=== PATIENT | male | born 1975 | race Caucasian/White ===

== ENCOUNTER 2022-02-25 10:18 | Outpatient (CLI) | payer BC ==
[2022-02-25 11:25] LABS: Hemoglobin 16.2 g/dL (13.5-17.5); Mean Corpuscular HGB CONC 33.5 g/dL (32.0-36.0); Mean Corpuscular Hemoglobin 29.8 pg (27.0-33.0); Mean Platelet Volume 11.3 fl (7.4-10.4); Platelet Count 313 10x3/uL (150-450); RBC Distribution Width 13.7 % (11.5-14.5); Red Blood Cell (RBC) Count 5.43 10x6/uL (4.32-5.72); White Blood Cell (WBC) Count 9.5 10x3/uL (3.5-10.5)
[2022-02-25 11:46] LABS: INR-International Normal Ratio 0.9; PTT 25.2 sec (22.0-33.0); Prothrombin Time 10.1 sec (9.5-12.1)
[2022-02-25 11:51] LABS: Anion Gap 16 mmol/L (10-20); BUN (Urea Nitrogen) 23 mg/dL (8.9-20.6); Calc. Creatinine Clearance 0 mL/min (70-130); Calcium 9.4 mg/dL (7.8-10.44); Carbon Dioxide 22 mmol/L (22-29); Chloride 107 mmol/L (98-107); Estimated GFR 112; Glucose 113 mg/dL (70-105); Sodium 140 mmol/L (136-145)
== END 2022-02-25 10:19 | disposition home or self-care (01) ==
LOC: LABBT 10:18
PROVIDERS: ATTEND Surgery
DX: Z01.818 Encounter for other preprocedural examination (principal); M54.2 Cervicalgia; G95.9 Disease of spinal cord, unspecified; G96.00 Cerebrospinal fluid leak, unspecified
CPT/HCPCS: 80048; 85027; 85610; 85730; 93005; 93010

== ENCOUNTER 2022-02-25 10:30 | Inpatient (IN) | payer BC ==
[2022-02-28] MEDS ORDERED: fentaNYL PF 100 MCG/2 ML SYRINGE ONE (06:43)
[2022-02-28] MEDS ORDERED: Dexmedetomidine 200 MCG/2 ML VIAL ONE (06:43)
[2022-02-28] MEDS ORDERED: Neomycin-Polymyxin 1 ML AMP ONE (06:48)
[2022-02-28] MEDS ORDERED: Thrombin 5000 UNITS/5 ML VIAL ONE (06:48)
[2022-02-28] MEDS ORDERED: CEFAZOLIN 2 GM VIAL ONE (07:14)
[2022-02-28] MEDS ORDERED: Sodium Chloride 0.9% 100 ML ONE (07:14)
[2022-02-28] MEDS ORDERED: Midazolam HCl 2 mg/2 ml Vial ONE (07:15)
[2022-02-28] MEDS ORDERED: Propofol 1,000 MG/100 ML VIAL IV ONE (07:29)
[2022-02-28] MEDS ORDERED: Ondansetron PF 4 MG/2 ML Vial ONE (07:38)
[2022-02-28] MEDS ORDERED: Dexamethasone 20 MG/5 ML VIAL ONE (07:38)
[2022-02-28] MEDS ORDERED: ePHEDrine 50 MG/ML VIAL ONE (07:38)
[2022-02-28] MEDS ORDERED: PROPOFOL 200 MG/20 ML VIAL ONE (07:38)
[2022-02-28] MEDS ORDERED: PHENYLEPHRINE-NS 100 MCG/ML 10 ML SYRINGE ONE (07:38)
[2022-02-28] MEDS ORDERED: Glycopyrrolate 0.2 MG/ML 5 ML SYRINGE ONE (07:38)
[2022-02-28] MEDS ORDERED: NEOSTIGMINE 3 MG/3 ML SYR 3 MG/3 ML SYRINGE ONE (07:38)
[2022-02-28] MEDS ORDERED: Rocuronium Bromide 10 MG/ML (10ML VIAL) ONE (07:38)
[2022-02-28 07:46] LABS: SARS-CoV-2 NAA Rapid Test Not Detected (NotDetected)
[2022-02-28] MEDS ORDERED: Phenylephrine 10 MG/ML VIAL ONE (09:05)
[2022-02-28] MEDS ORDERED: Nitroglycerin 2% Ointment 1 INCH/1 GM Packet ONE (09:22)
[2022-02-28] MEDS ORDERED: Promethazine HCl 25 MG/ML VIAL IVPB PRN (11:19)
[2022-02-28] MEDS ORDERED: HYDROmorphone 2 MG/ML VIAL SLOW IVP PRN (11:19)
[2022-02-28] MEDS ORDERED: Meperidine HCl/PF 25 MG/ML VIAL SLOW IVP PRN (11:19)
[2022-02-28] MEDS ORDERED: PACU-Morphine 4MG/ML VIAL SLOW IVP PRN ×2 (11:19→11:47)
[2022-02-28] MEDS ORDERED: Ondansetron HCl/PF 4 MG/2 ML Vial IVP PRN (11:19)
[2022-02-28] MEDS ORDERED: Promethazine HCl 25 MG/ML VIAL IM PRN (11:19)
[2022-02-28] MEDS ORDERED: HYDROmorphone 2 MG/ML VIAL ONE (11:41)
[2022-02-28] MEDS ORDERED: FENTANYL 50 MCG/ML 1 ML VIAL SLOW IVP PRN (11:49)
[2022-02-28] MEDS ORDERED: HYDROcodone/Acetaminophen 7.5/325 mg Tablet PO PRN (11:56)
[2022-02-28] MEDS ORDERED: diphenhydrAMINE 25 MG CAP PO PRN (11:56)
[2022-02-28] MEDS ORDERED: Ondansetron PF 4 MG/2 ML Vial IVP PRN (11:56)
[2022-02-28] MEDS ORDERED: Acetaminophen/Codeine 30-300mg Tablet PO PRN (11:56)
[2022-02-28] MEDS ORDERED: hydrALAZINE 20 MG/ML VIAL SLOW IVP PRN (12:01)
[2022-02-28] MEDS ORDERED: Promethazine HCl 12.5 MG in Sodium Chloride 0.9% 50 ML IVPB PRN (12:01)
[2022-02-28] MEDS ORDERED: Lorazepam 1 MG TAB PO PRN (12:02)
[2022-02-28] MEDS ORDERED: HYDROmorphone 0.5 MG/0.5 ML SYRINGE ONE ×2 (13:20→13:45)
[2022-02-28] MEDS ORDERED: Ketorolac Tromethamine 30 MG/ML VIAL ONE (13:20)
[2022-02-28] MEDS: Sodium Chloride 0.9% 1,000 ML IV SCH (14:44)
[2022-02-28] MEDS: Ketorolac Tromethamine 30 MG/ML VIAL IVP PRN ×2 (14:53→22:20)
[2022-02-28] MEDS: FENTANYL 50 MCG/ML 1 ML VIAL SLOW IVP PRN ×4 (15:08→22:01)
[2022-02-28] MEDS: CEFAZOLIN 2 GM in Sodium Chloride 0.9% 100 ML IVPB SCH (15:13)
[2022-02-28 15:44] VITALS: BMI 38.8
[2022-02-28] MEDS: HYDROcodone/Acetaminophen 7.5/325 mg Tablet PO PRN ×2 (15:46→19:41)
[2022-02-28] MEDS: Diazepam 5 MG TAB PO PRN (16:57)
[2022-02-28 17:00] LABS: Troponin I Less than 0.010 ng/mL (< 0.028)
[2022-02-28] MEDS: traMADol HCl 50 MG TAB PO PRN (21:59)
[2022-02-28] MEDS: Atorvastatin Calcium 20 MG TAB PO SCH (22:00)
[2022-02-28] MEDS: metFORMIN 500 MG TAB PO SCH (22:00)
[2022-02-28 23:24] LABS: Troponin I Less than 0.010 ng/mL (< 0.028)
[2022-03-01] MEDS: CEFAZOLIN 2 GM in Sodium Chloride 0.9% 100 ML IVPB SCH ×2 (00:07→07:58)
[2022-03-01] MEDS: Diazepam 5 MG TAB PO PRN ×2 (02:49→10:42)
[2022-03-01] MEDS: Sodium Chloride 0.9% 1,000 ML IV SCH ×2 (02:53→17:35)
[2022-03-01 04:03] LABS: #Basophils 0.2 thou/uL (0.0-0.2); #Lymphocytes 2.6 thou/uL (1.20-3.40); #Monocytes 1.4 thou/uL (0.11-0.59); #Neutrophils 13.2 thou/uL (1.40-6.50); %Eosinophils 0.1 % (0.0-10.0); %Lymphocytes 15.1 % (21.0-51.0); %Monocytes 8.3 % (0.0-10.0); %Neutrophils 75.5 % (42.0-75.0); Hemoglobin 13.5 g/dL (14.0-18.0); Mean Corpuscular HGB CONC 31.9 g/dL (32.0-36.0); Mean Platelet Volume 8.5 fL (7.4-10.4); Platelet Count 248 10x3/uL (130-400); RBC Distribution Width 12.8 % (11.5-14.5); Red Blood Cell (RBC) Count 4.52 mill/uL (4.70-6.10); White Blood Cell (WBC) Count 17.4 10x3/uL (4.8-10.8)
[2022-03-01 04:23] LABS: Anion Gap 13 mmol/L (10-20); BUN (Urea Nitrogen) 21 mg/dL (8.9-20.6); Calc. Creatinine Clearance 234 mL/min (70-130); Calcium 8.2 mg/dL (7.8-10.44); Carbon Dioxide 22 mmol/L (22-29); Chloride 106 mmol/L (98-107); Estimated GFR 112; Glucose 130 mg/dL (70-105); Sodium 137 mmol/L (136-145)
[2022-03-01] MEDS: traMADol HCl 50 MG TAB PO PRN (05:48)
[2022-03-01] MEDS: Ketorolac Tromethamine 30 MG/ML VIAL IVP PRN ×2 (05:49→12:09)
[2022-03-01] MEDS: HYDROcodone/Acetaminophen 7.5/325 mg Tablet PO PRN (07:59)
[2022-03-01] MEDS: metFORMIN 500 MG TAB PO SCH ×2 (08:02→20:37)
[2022-03-01] MEDS: FENTANYL 50 MCG/ML 1 ML VIAL SLOW IVP PRN (09:09)
[2022-03-01] MEDS ORDERED: Bisacodyl 5 MG TAB PO SCH (10:30)
[2022-03-01] MEDS ORDERED: diphenhydrAMINE 50 MG/ML VIAL IM PRN (11:24)
[2022-03-01] MEDS ORDERED: diphenhydrAMINE 25 MG CAP PO PRN (11:24)
[2022-03-01] MEDS ORDERED: Zolpidem Tartrate 5 MG TAB PO PRN (11:24)
[2022-03-01] MEDS ORDERED: Naloxone HCl 0.4 mg/ml Vial IV PRN (11:24)
[2022-03-01] MEDS ORDERED: diphenhydrAMINE 50 MG/ML VIAL IVP PRN (11:24)
[2022-03-01] MEDS ORDERED: Promethazine HCl 25 MG/ML VIAL IM PRN (11:24)
[2022-03-01] MEDS ORDERED: Communication Order-Pharmacy FS SCH (11:30)
[2022-03-01] MEDS: HYDROmorphone 10 mg/100 ml CADD IVPB PRN (12:38)
[2022-03-01] MEDS: Docusate 100 MG CAP PO SCH (20:37)
[2022-03-01] MEDS: Atorvastatin Calcium 20 MG TAB PO SCH (20:37)
[2022-03-02] MEDS: Acetaminophen 325 MG TAB PO PRN ×2 (00:19→20:54)
[2022-03-02] MEDS: Sodium Chloride 0.9% 1,000 ML IV SCH ×2 (08:09→19:41)
[2022-03-02] MEDS: HYDROmorphone 10 mg/100 ml CADD IVPB PRN (08:09)
[2022-03-02] MEDS: Docusate 100 MG CAP PO SCH ×2 (08:09→20:54)
[2022-03-02] MEDS: Bisacodyl 5 MG TAB PO SCH (08:09)
[2022-03-02] MEDS: metFORMIN 500 MG TAB PO SCH ×2 (08:09→20:54)
[2022-03-02] MEDS: Atorvastatin Calcium 20 MG TAB PO SCH (20:54)
[2022-03-03] MEDS: Ondansetron PF 4 MG/2 ML Vial IVP PRN ×2 (04:57→10:20)
[2022-03-03] MEDS: Sodium Chloride 0.9% 1,000 ML IV SCH ×2 (06:58→21:45)
[2022-03-03] MEDS: Docusate 100 MG CAP PO SCH ×2 (09:14→21:43)
[2022-03-03] MEDS: metFORMIN 500 MG TAB PO SCH ×2 (09:14→21:43)
[2022-03-03] MEDS: Bisacodyl 5 MG TAB PO SCH (09:14)
[2022-03-03] MEDS ORDERED: Acetaminophen/Codeine 30-300mg Tablet PO PRN (14:45)
[2022-03-03] MEDS ORDERED: traMADol HCl 50 MG TAB PO PRN (14:45)
[2022-03-03] MEDS ORDERED: HYDROcodone/Acetaminophen 7.5/325 mg Tablet PO PRN (14:46)
[2022-03-03] MEDS ORDERED: FLU VACC QS2022-23(6MOS UP)/PF 60 MCG/0.5 ML SYRINGE IM ONE (18:00)
[2022-03-03] MEDS ORDERED: Polyethylene Glycol 3350 17 GM Packet PO PRN (20:51)
[2022-03-03] MEDS: Atorvastatin Calcium 20 MG TAB PO SCH (21:43)
[2022-03-04] MEDS: HYDROcodone/Acetaminophen 7.5/325 mg Tablet PO PRN ×4 (04:11→20:35)
[2022-03-04 07:17] LABS: Anion Gap 12 mmol/L (10-20); BUN (Urea Nitrogen) 16 mg/dL (8.9-20.6); Calc. Creatinine Clearance 247 mL/min (70-130); Calcium 8.3 mg/dL (7.8-10.44); Carbon Dioxide 24 mmol/L (22-29); Chloride 104 mmol/L (98-107); Estimated GFR 114; Glucose 155 mg/dL (70-105); Potassium 3.8 mmol/L (3.5-5.1); Sodium 136 mmol/L (136-145)
[2022-03-04 07:25] LABS: #Basophils 0.3 thou/uL (0.0-0.2); #Eosinphils 0.3 thou/uL (0.0-0.7); #Lymphocytes 2.3 thou/uL (1.20-3.40); #Monocytes 1.1 thou/uL (0.11-0.59); #Neutrophils 7.6 thou/uL (1.40-6.50); %Basophils 2.2 % (0.0-1.0); %Eosinophils 2.6 % (0.0-10.0); %Lymphocytes 19.7 % (21.0-51.0); %Monocytes 9.8 % (0.0-10.0); %Neutrophils 65.7 % (42.0-75.0); Hemoglobin 13.4 g/dL (14.0-18.0); Mean Corpuscular HGB CONC 31.7 g/dL (32.0-36.0); Mean Corpuscular Hemoglobin 29.7 pg (27.0-31.0); Mean Corpuscular Volume 93.7 fl (78.0-98.0); Mean Platelet Volume 8.5 fL (7.4-10.4); Platelet Count 266 10x3/uL (130-400); RBC Distribution Width 12.7 % (11.5-14.5); Red Blood Cell (RBC) Count 4.51 mill/uL (4.70-6.10); White Blood Cell (WBC) Count 11.6 10x3/uL (4.8-10.8)
[2022-03-04] MEDS: Docusate 100 MG CAP PO SCH ×2 (08:22→20:35)
[2022-03-04] MEDS: metFORMIN 500 MG TAB PO SCH ×2 (08:22→20:35)
[2022-03-04] MEDS: Bisacodyl 5 MG TAB PO SCH (08:22)
[2022-03-04] MEDS: Sodium Chloride 0.9% 1,000 ML IV SCH ×2 (08:29→20:33)
[2022-03-04] MEDS: Atorvastatin Calcium 20 MG TAB PO SCH (20:35)
[2022-03-05] MEDS: HYDROcodone/Acetaminophen 7.5/325 mg Tablet PO PRN ×4 (01:01→22:30)
[2022-03-05] MEDS: metFORMIN 500 MG TAB PO SCH ×2 (08:35→19:45)
[2022-03-05] MEDS ORDERED: Enoxaparin Sodium 40 MG/0.4 ML SYRINGE SC SCH (15:00)
[2022-03-05] MEDS: Docusate 100 MG CAP PO SCH ×2 (15:45→19:45)
[2022-03-05] MEDS: Bisacodyl 5 MG TAB PO SCH (15:45)
[2022-03-05] MEDS: Sodium Chloride 0.9% 1,000 ML IV SCH (15:46)
[2022-03-05] MEDS: Atorvastatin Calcium 20 MG TAB PO SCH (19:45)
[2022-03-06] MEDS: Sodium Chloride 0.9% 1,000 ML IV SCH (02:32)
[2022-03-06] MEDS: HYDROcodone/Acetaminophen 7.5/325 mg Tablet PO PRN (07:04)
[2022-03-06] MEDS ORDERED: Ketorolac Tromethamine 30 MG/ML VIAL IVP PRN (08:05)
[2022-03-06] MEDS ORDERED: Ketorolac Tromethamine 30 MG/ML VIAL IVP SCH (08:15)
[2022-03-06] MEDS ORDERED: Enoxaparin Sodium 40 MG/0.4 ML SYRINGE SC SCH (09:00)
[2022-03-06] MEDS: Docusate 100 MG CAP PO SCH (09:15)
[2022-03-06] MEDS: metFORMIN 500 MG TAB PO SCH (09:16)
[2022-03-06] MEDS: Bisacodyl 5 MG TAB PO SCH (09:16)
[2022-03-06] MEDS ORDERED: Fioricet 325/50/40 mg Tablet PO PRN (10:45)
[2022-03-06 12:44] VITALS: BP 120/78; TEMP 97.8
== END 2022-03-06 13:20 | DRG 29 ==
LOC: SURG A 02-28 06:09 → CCU 02-28 14:48 → SURG A 03-01 18:18
PROVIDERS: ADMIT Surgery; ATTEND Surgery
PROC: 00UT0JZ Supplement Spinal Meninges with Synthetic Substitute, Open Approach (ICD-10-PCS; principal; 2022-02-28)
PROC: 01NB0ZZ Release Lumbar Nerve, Open Approach (ICD-10-PCS; 2022-02-28)
DX: G96.198 Other disorders of meninges, not elsewhere classified (principal); G83.4 Cauda equina syndrome; G96.00 Cerebrospinal fluid leak, unspecified; G93.89 Other specified disorders of brain; E78.5 Hyperlipidemia, unspecified; J45.909 Unspecified asthma, uncomplicated; G47.33 Obstructive sleep apnea (adult) (pediatric); F32.A Depression, unspecified; F41.9 Anxiety disorder, unspecified; E11.9 Type 2 diabetes mellitus without complications; E66.9 Obesity, unspecified; Z90.49 Acquired absence of other specified parts of digestive tract; Z68.38 Body mass index [BMI] 38.0-38.9, adult; Z88.1 Allergy status to other antibiotic agents; G31.89 Other specified degenerative diseases of nervous system
CPT/HCPCS: 36415; 70450; 80048; 84484; 85025; 88305; 93005; 93010; 93970; C1776; J1100; J1170; J1650; J1885; J2250; J2370; J2405; J2704; J3010; J3370; J3490; J7050; U0002

== ENCOUNTER 2022-03-17 21:38 | Inpatient (IN) | payer BC ==
[2022-03-17] MEDS ORDERED: Ondansetron PF 4 MG/2 ML Vial ONE (22:10)
[2022-03-17] MEDS ORDERED: FENTANYL 50 MCG/ML 1 ML VIAL ONE (22:13)
[2022-03-17] MEDS ORDERED: Cefepime 2 GM VIAL ONE (22:33)
[2022-03-17] MEDS ORDERED: Clindamycin/D5W 600 mg/50 ml Premix Bag ONE (22:56)
[2022-03-17 23:00] LABS: Band 9 % (5-11); Lymphocytes 9 % (21-51); MDiff Complete? YES; Mean Corpuscular HGB CONC 31.9 g/dL (32.0-36.0); Mean Platelet Volume 8.5 fL (7.4-10.4); Monocytes 2 % (0-10); Neutrophil 80 % (42-75); Platelet Count 437 10x3/uL (130-400); RBC Distribution Width 12.8 % (11.5-14.5); Red Blood Cell (RBC) Count 5.01 mill/uL (4.70-6.10); White Blood Cell (WBC) Count 30.3 10x3/uL (4.8-10.8)
[2022-03-17 23:07] LABS: SARS-CoV-2 NAA Rapid Test Not Detected (NotDetected)
[2022-03-17 23:34] LABS: ALT (SGPT) 18 U/L (8-55); AST (SGOT) 10 U/L (5-34); Albumin 3.2 g/dL (3.5-5.0); Alkaline Phosphatase 66 U/L (40-110); Anion Gap 12 mmol/L (10-20); BUN (Urea Nitrogen) 23 mg/dL (8.9-20.6); Bilirubin, Total 0.5 mg/dL (0.2-1.2); Calc. Creatinine Clearance 0 mL/min (70-130); Calcium 8.2 mg/dL (7.8-10.44); Carbon Dioxide 23 mmol/L (22-29); Chloride 104 mmol/L (98-107); Estimated GFR 100; Globulin 2.7 g/dL (2.4-3.5); Glucose 224 mg/dL (70-105); Potassium 3.7 mmol/L (3.5-5.1); Protein, Total 5.9 g/dL (6.0-8.3); Sodium 135 mmol/L (136-145)
[2022-03-18] MEDS ORDERED: Morphine 4 MG/ML VIAL ONE ×2 (00:06→02:19)
[2022-03-18] MEDS ORDERED: diphenhydrAMINE 50 MG CAP ONE (00:14)
[2022-03-18] MEDS ORDERED: Acetaminophen 500 MG TAB ONE (00:17)
[2022-03-18 01:38] LABS: Lactic Acid 5.1 mmol/L (0.5-2.2)
[2022-03-18] MEDS ORDERED: Piperacillin/Tazobactam 4.5 GM VIAL ONE (02:19)
[2022-03-18] MEDS ORDERED: HumaLOG 300 UNITS/3 ML VIAL SC PRN (02:48)
[2022-03-18] MEDS ORDERED: Ondansetron PF 4 MG/2 ML Vial IVP PRN (02:48)
[2022-03-18] MEDS ORDERED: Dextrose 50% Abboject 50 ML SYRINGE SLOW IVP PRN (02:48)
[2022-03-18] MEDS ORDERED: Dextrose 5% in Water 1,000 ML IV PRN (02:48)
[2022-03-18] MEDS ORDERED: Ondansetron ODT 4 MG TAB PO PRN (02:48)
[2022-03-18] MEDS ORDERED: Acetaminophen 650 MG Suppository PR PRN (02:48)
[2022-03-18] MEDS: Linezolid 600 MG in Premix Bag 1 BAG IVPB SCH ×2 (05:00→18:37)
[2022-03-18] MEDS ORDERED: FENTANYL 50 MCG/ML 1 ML VIAL SLOW IVP PRN (05:15)
[2022-03-18] MEDS ORDERED: FENTANYL 50 MCG/ML 1 ML VIAL ONE ×6 (05:34→16:24)
[2022-03-18] MEDS ORDERED: Acetaminophen 325 MG TAB ONE (05:34)
[2022-03-18] MEDS: Acetaminophen 325 MG TAB PO PRN (05:40)
[2022-03-18 06:17] LABS: Bilirubin Negative (Negative); Blood, Urine Negative (Negative); Clarity Clear (Clear); Glucose, Urine (Dipstick) 70 mg/dL (Negative); Ketone, Urine Trace mg/dL (Negative); Leukocyte Negative Leu/uL (Negative); Nitrite Negative (Negative); Protein, Urine (Dipstick) 30 mg/dL (Neg-Trace); Specific Gravity, Urine 1.029 (1.002-1.036); Urobilinogen Normal mg/dL (Less than 2); pH, Urine 5.5 (5.0-9.0)
[2022-03-18 06:28] LABS: Lactic Acid 2.2 mmol/L (0.5-2.2)
[2022-03-18 06:34] LABS: Anion Gap 12 mmol/L (10-20); BUN (Urea Nitrogen) 19 mg/dL (8.9-20.6); Calc. Creatinine Clearance 0 mL/min (70-130); Calcium 8.1 mg/dL (7.8-10.44); Carbon Dioxide 21 mmol/L (22-29); Chloride 105 mmol/L (98-107); Estimated GFR 100; Glucose 211 mg/dL (70-105); Sodium 134 mmol/L (136-145)
[2022-03-18 06:37] LABS: Hemoglobin 13.9 g/dL (14.0-18.0); Mean Corpuscular HGB CONC 33.5 g/dL (32.0-36.0); Mean Corpuscular Hemoglobin 32.1 pg (27.0-31.0); Mean Corpuscular Volume 95.6 fl (78.0-98.0); Mean Platelet Volume 7.9 fL (7.4-10.4); Platelet Count 470 10x3/uL (130-400); RBC Distribution Width 12.9 % (11.5-14.5); Red Blood Cell (RBC) Count 4.33 mill/uL (4.70-6.10); White Blood Cell (WBC) Count 28.6 10x3/uL (4.8-10.8)
[2022-03-18 06:47] LABS: Band 8 % (5-11); Lymphocytes 5 % (21-51); MDiff Complete? YES; Monocytes 4 % (0-10); Neutrophil 83 % (42-75)
[2022-03-18 07:05] LABS: Bacteria/HPF None Seen HPF (None Seen); RBC/HPF 0-3 HPF (0-3); Squamous Epithelial 0-3 HPF (0-3); WBC/HPF 0-3 HPF (0-3)
[2022-03-18] MEDS ORDERED: Fentanyl 100 MCG/2 ML VIAL SLOW IVP SCH (07:15)
[2022-03-18] MEDS ORDERED: FENTANYL 50 MCG/ML 1 ML VIAL SLOW IVP SCH (07:45)
[2022-03-18 09:02] LABS: Lactic Acid 3.7 mmol/L (0.5-2.2)
[2022-03-18] MEDS ORDERED: Piperacillin/Tazobactam 3.375 GM VIAL ONE (09:06)
[2022-03-18] MEDS: Piperacillin/Tazobactam 3.375 GM in Sodium Chloride 0.9% 100 ML IVPB SCH ×3 (09:16→20:32)
[2022-03-18] MEDS ORDERED: Fentanyl 100 MCG/2 ML VIAL SLOW IVP PRN (10:14)
[2022-03-18] MEDS ORDERED: Sodium Chloride 0.9% 500 ML IV SCH (10:15)
[2022-03-18] MEDS ORDERED: Magnevist 469MG/ML 20 ML VIAL ONE (10:31)
[2022-03-18] MEDS: Sodium Chloride 0.9% 1,000 ML IV SCH ×2 (11:11→18:37)
[2022-03-18] MEDS ORDERED: Midazolam HCl 2 mg/2 ml Vial ONE ×2 (11:50→14:12)
[2022-03-18] MEDS ORDERED: Ondansetron PF 4 MG/2 ML Vial ONE ×2 (13:53→14:27)
[2022-03-18] MEDS ORDERED: fentaNYL PF 100 MCG/2 ML SYRINGE ONE (14:12)
[2022-03-18] MEDS ORDERED: HYDROmorphone 2 MG/ML VIAL ONE (14:13)
[2022-03-18] MEDS ORDERED: Neomycin-Polymyxin 1 ML AMP ONE (14:25)
[2022-03-18] MEDS ORDERED: Dexamethasone 20 MG/5 ML VIAL ONE (14:27)
[2022-03-18] MEDS ORDERED: Ketorolac Tromethamine 30 MG/ML VIAL ONE (14:27)
[2022-03-18] MEDS ORDERED: Succinylcholine 200 MG/10 ml SYRINGE FS ONE (14:27)
[2022-03-18] MEDS ORDERED: Heparin 1,000 UNITS/ML VIAL ONE (14:34)
[2022-03-18] MEDS ORDERED: Ondansetron HCl/PF 4 MG/2 ML Vial IVP PRN (15:21)
[2022-03-18] MEDS ORDERED: Promethazine HCl 25 MG/ML VIAL IM PRN (15:21)
[2022-03-18] MEDS ORDERED: Meperidine HCl/PF 25 MG/ML VIAL SLOW IVP PRN (15:21)
[2022-03-18] MEDS ORDERED: Promethazine HCl 25 MG/ML VIAL IVPB PRN (15:21)
[2022-03-18] MEDS ORDERED: HYDROmorphone 2 MG/ML VIAL SLOW IVP PRN (15:21)
[2022-03-18] MEDS: tiZANidine HCl 4 MG TAB PO SCH ×2 (18:34→18:37)
[2022-03-18] MEDS: HYDROcodone/Acetaminophen 10/325 mg Tablet PO PRN ×2 (18:35→22:51)
[2022-03-18] MEDS: HumaLOG 300 UNITS/3 ML VIAL SC PRN (18:41)
[2022-03-19] MEDS: Sodium Chloride 0.9% 1,000 ML IV SCH ×4 (00:22→20:30)
[2022-03-19 01:06] LABS: Bacteria/HPF None Seen HPF (None Seen); Bilirubin Negative (Negative); Blood, Urine 1+ (Negative); CAUTI Indications for Culture Fever or rigors; Clarity Turbid (Clear); Glucose, Urine (Dipstick) 300 mg/dL (Negative); Ketone, Urine Trace mg/dL (Negative); Leukocyte Negative Leu/uL (Negative); Nitrite Negative (Negative); Protein, Urine (Dipstick) 70 mg/dL (Neg-Trace); RBC/HPF 0-3 HPF (0-3); Specific Gravity, Urine 1.038 (1.002-1.036); Squamous Epithelial 0-3 HPF (0-3); Urobilinogen Normal mg/dL (Less than 2)
[2022-03-19 01:11] LABS: Urine Culture Reflex No No
[2022-03-19] MEDS: HYDROcodone/Acetaminophen 10/325 mg Tablet PO PRN ×3 (03:15→20:28)
[2022-03-19] MEDS: Morphine 4 MG/ML VIAL SLOW IVP PRN (05:20)
[2022-03-19] MEDS: Linezolid 600 MG in Premix Bag 1 BAG IVPB SCH ×2 (05:20→17:49)
[2022-03-19] MEDS: tiZANidine HCl 4 MG TAB PO SCH ×4 (05:20→23:21)
[2022-03-19] MEDS: HumaLOG 300 UNITS/3 ML VIAL SC PRN ×3 (05:31→16:51)
[2022-03-19 05:40] LABS: Anion Gap 13 mmol/L (10-20); BUN (Urea Nitrogen) 19 mg/dL (8.9-20.6); Calc. Creatinine Clearance 215 mL/min (70-130); Calcium 8.1 mg/dL (7.8-10.44); Carbon Dioxide 21 mmol/L (22-29); Chloride 106 mmol/L (98-107); Estimated GFR 112; Glucose 154 mg/dL (70-105); Potassium 3.7 mmol/L (3.5-5.1); Sodium 136 mmol/L (136-145)
[2022-03-19 06:01] LABS: Band 11 % (5-11); Hemoglobin 11.8 g/dL (14.0-18.0); Lymphocytes 3 % (21-51); MDiff Complete? YES; Mean Corpuscular HGB CONC 31.2 g/dL (32.0-36.0); Mean Corpuscular Hemoglobin 29.9 pg (27.0-31.0); Mean Corpuscular Volume 95.7 fl (78.0-98.0); Mean Platelet Volume 8.4 fL (7.4-10.4); Monocytes 5 % (0-10); Neutrophil 81 % (42-75); Platelet Count 401 10x3/uL (130-400); RBC Distribution Width 12.7 % (11.5-14.5); Red Blood Cell (RBC) Count 3.96 mill/uL (4.70-6.10); White Blood Cell (WBC) Count 23.2 10x3/uL (4.8-10.8)
[2022-03-19] MEDS: Piperacillin/Tazobactam 3.375 GM in Sodium Chloride 0.9% 100 ML IVPB SCH ×3 (06:17→23:21)
[2022-03-19] MEDS: Acetaminophen 325 MG TAB PO PRN (06:17)
[2022-03-19] MEDS ORDERED: Polyethylene Glycol 3350 17 GM Packet PO PRN (09:20)
[2022-03-19] MEDS ORDERED: Docusate 100 MG CAP PO SCH (10:30)
[2022-03-19] MEDS: metFORMIN 500 MG TAB PO SCH (16:49)
[2022-03-19] MEDS: Docusate 100 MG CAP PO SCH (20:27)
[2022-03-19] MEDS: Fioricet 325/50/40 mg Tablet PO PRN (23:44)
[2022-03-20] MEDS: HYDROcodone/Acetaminophen 10/325 mg Tablet PO PRN ×4 (03:36→23:13)
[2022-03-20] MEDS: Sodium Chloride 0.9% 1,000 ML IV SCH ×3 (03:38→12:42)
[2022-03-20] MEDS: Linezolid 600 MG in Premix Bag 1 BAG IVPB SCH ×2 (04:27→17:23)
[2022-03-20 05:08] LABS: #Basophils 0.3 thou/uL (0.0-0.2); #Eosinphils 0.2 thou/uL (0.0-0.7); #Lymphocytes 2.5 thou/uL (1.20-3.40); #Neutrophils 11.2 thou/uL (1.40-6.50); %Basophils 2.2 % (0.0-1.0); %Eosinophils 1.4 % (0.0-10.0); %Lymphocytes 16.7 % (21.0-51.0); %Monocytes 6.3 % (0.0-10.0); %Neutrophils 73.4 % (42.0-75.0); Hemoglobin 10.9 g/dL (14.0-18.0); Mean Corpuscular HGB CONC 31.9 g/dL (32.0-36.0); Mean Corpuscular Hemoglobin 30.4 pg (27.0-31.0); Mean Corpuscular Volume 95.1 fl (78.0-98.0); Mean Platelet Volume 8.5 fL (7.4-10.4); Platelet Count 373 10x3/uL (130-400); RBC Distribution Width 12.9 % (11.5-14.5); Red Blood Cell (RBC) Count 3.59 mill/uL (4.70-6.10); White Blood Cell (WBC) Count 15.2 10x3/uL (4.8-10.8)
[2022-03-20 05:18] LABS: Anion Gap 12 mmol/L (10-20); BUN (Urea Nitrogen) 14 mg/dL (8.9-20.6); Calc. Creatinine Clearance 224 mL/min (70-130); Calcium 7.9 mg/dL (7.8-10.44); Carbon Dioxide 21 mmol/L (22-29); Chloride 107 mmol/L (98-107); Estimated GFR 113; Glucose 113 mg/dL (70-105); Potassium 3.8 mmol/L (3.5-5.1); Sodium 136 mmol/L (136-145)
[2022-03-20] MEDS: Piperacillin/Tazobactam 3.375 GM in Sodium Chloride 0.9% 100 ML IVPB SCH ×3 (06:19→21:00)
[2022-03-20] MEDS: tiZANidine HCl 4 MG TAB PO SCH ×4 (06:19→23:13)
[2022-03-20] MEDS: Fioricet 325/50/40 mg Tablet PO PRN ×3 (06:20→20:54)
[2022-03-20] MEDS: Atorvastatin Calcium 20 MG TAB PO SCH (08:32)
[2022-03-20] MEDS: metFORMIN 500 MG TAB PO SCH ×2 (08:33→17:22)
[2022-03-20] MEDS: Docusate 100 MG CAP PO SCH (08:34)
[2022-03-20] MEDS ORDERED: Senokot 8.6 MG TAB PO PRN (12:17)
[2022-03-20] MEDS: Morphine 4 MG/ML VIAL SLOW IVP PRN ×2 (16:05→20:57)
[2022-03-20] MEDS: Acetaminophen 325 MG TAB PO PRN (16:05)
[2022-03-20] MEDS: Saccharomyces boulardii 250 MG CAP PO SCH (20:54)
[2022-03-21] MEDS: Morphine 4 MG/ML VIAL SLOW IVP PRN ×2 (00:01→05:53)
[2022-03-21] MEDS: Sodium Chloride 0.9% 1,000 ML IV SCH ×3 (02:03→16:40)
[2022-03-21] MEDS: Linezolid 600 MG in Premix Bag 1 BAG IVPB SCH ×2 (03:29→05:58)
[2022-03-21] MEDS: tiZANidine HCl 4 MG TAB PO SCH ×3 (05:54→18:39)
[2022-03-21 05:58] LABS: #Basophils 0.1 thou/uL (0.0-0.2); #Eosinphils 0.3 thou/uL (0.0-0.7); #Lymphocytes 2.1 thou/uL (1.20-3.40); #Monocytes 1.2 thou/uL (0.11-0.59); #Neutrophils 9.8 thou/uL (1.40-6.50); %Basophils 0.5 % (0.0-1.0); %Eosinophils 2.3 % (0.0-10.0); %Lymphocytes 15.5 % (21.0-51.0); %Monocytes 8.8 % (0.0-10.0); %Neutrophils 72.9 % (42.0-75.0); Hemoglobin 11.5 g/dL (14.0-18.0); Mean Corpuscular HGB CONC 32.4 g/dL (32.0-36.0); Mean Corpuscular Hemoglobin 30.6 pg (27.0-31.0); Mean Corpuscular Volume 94.5 fl (78.0-98.0); Mean Platelet Volume 8.3 fL (7.4-10.4); Platelet Count 379 10x3/uL (130-400); Red Blood Cell (RBC) Count 3.75 mill/uL (4.70-6.10); White Blood Cell (WBC) Count 13.5 10x3/uL (4.8-10.8)
[2022-03-21 06:16] LABS: ALT (SGPT) 18 U/L (8-55); AST (SGOT) 18 U/L (5-34); Albumin 2.8 g/dL (3.5-5.0); Alkaline Phosphatase 67 U/L (40-110); Anion Gap 12 mmol/L (10-20); BUN (Urea Nitrogen) 8 mg/dL (8.9-20.6); Bilirubin, Total 0.7 mg/dL (0.2-1.2); Calc. Creatinine Clearance 218 mL/min (70-130); Calcium 8.2 mg/dL (7.8-10.44); Carbon Dioxide 25 mmol/L (22-29); Chloride 100 mmol/L (98-107); Estimated GFR 112; Globulin 2.8 g/dL (2.4-3.5); Glucose 126 mg/dL (70-105); Magnesium 1.8 mg/dL (1.6-2.6); Potassium 3.9 mmol/L (3.5-5.1); Protein, Total 5.6 g/dL (6.0-8.3); Sodium 133 mmol/L (136-145)
[2022-03-21] MEDS ORDERED: Morphine 4 MG/ML VIAL SLOW IVP SCH (06:30)
[2022-03-21] MEDS ORDERED: Morphine 2 MG/ML VIAL SLOW IVP PRN (07:54)
[2022-03-21] MEDS ORDERED: Morphine 4 MG/ML VIAL ONE (07:59)
[2022-03-21] MEDS ORDERED: Dexamethasone 4 mg/ml Vial SLOW IVP SCH (08:00)
[2022-03-21] MEDS ORDERED: Dexamethasone 4 mg/ml Vial ONE (08:02)
[2022-03-21] MEDS: Piperacillin/Tazobactam 3.375 GM in Sodium Chloride 0.9% 100 ML IVPB SCH (08:15)
[2022-03-21] MEDS: metFORMIN 500 MG TAB PO SCH ×2 (08:24→18:13)
[2022-03-21] MEDS: Atorvastatin Calcium 20 MG TAB PO SCH (08:25)
[2022-03-21] MEDS ORDERED: Morphine 4 MG/ML VIAL SLOW IVP PRN (09:37)
[2022-03-21] MEDS ORDERED: Thrombin 5000 UNITS/5 ML VIAL ONE (10:14)
[2022-03-21] MEDS ORDERED: fentaNYL PF 100 MCG/2 ML SYRINGE ONE (10:22)
[2022-03-21] MEDS ORDERED: Enoxaparin Sodium 40 MG/0.4 ML SYRINGE SC SCH (10:30)
[2022-03-21] MEDS ORDERED: PROPOFOL 200 MG/20 ML VIAL ONE (10:42)
[2022-03-21] MEDS ORDERED: Vecuronium 10 MG VIAL ONE (10:42)
[2022-03-21] MEDS ORDERED: Ondansetron PF 4 MG/2 ML Vial ONE (10:42)
[2022-03-21] MEDS ORDERED: Rocuronium Bromide 10 MG/ML (10ML VIAL) ONE (10:42)
[2022-03-21] MEDS ORDERED: Phenylephrine 10 MG/ML VIAL ONE (10:42)
[2022-03-21] MEDS ORDERED: Vancomycin 1 GM VIAL ONE (11:32)
[2022-03-21] MEDS ORDERED: SUGAMMADEX SODIUM 200 MG/2 ML VIAL ONE (12:15)
[2022-03-21] MEDS ORDERED: CCU Insulin Drip FS ONE ×2 (13:16→16:47)
[2022-03-21] MEDS ORDERED: Promethazine HCl 25 MG/ML VIAL IVPB PRN (13:24)
[2022-03-21] MEDS ORDERED: Promethazine HCl 25 MG/ML VIAL IM PRN ×2 (13:24→13:26)
[2022-03-21] MEDS ORDERED: Ondansetron HCl/PF 4 MG/2 ML Vial IVP PRN (13:24)
[2022-03-21] MEDS ORDERED: Naloxone HCl 0.4 mg/ml Vial IV PRN (13:26)
[2022-03-21] MEDS ORDERED: diphenhydrAMINE 25 MG CAP PO PRN (13:26)
[2022-03-21] MEDS ORDERED: diphenhydrAMINE 50 MG/ML VIAL IM PRN (13:26)
[2022-03-21] MEDS ORDERED: Ondansetron PF 4 MG/2 ML Vial IVP PRN (13:26)
[2022-03-21] MEDS ORDERED: HYDROmorphone 10 mg/100 ml CADD IVPB PRN (13:26)
[2022-03-21] MEDS ORDERED: Communication Order-Pharmacy FS SCH (13:30)
[2022-03-21] MEDS ORDERED: FENTANYL 50 MCG/ML 1 ML VIAL ONE ×3 (13:35→14:03)
[2022-03-21] MEDS ORDERED: HUMULIN R 100 UNITS in Sodium Chloride 0.9% 100 ML IVPB SCH ×2 (13:45→18:45)
[2022-03-21] MEDS: Oxacillin 2 GM in Sodium Chloride 0.9% 100 ML IVPB SCH ×3 (14:55→20:15)
[2022-03-21] MEDS ORDERED: Melatonin 3 MG TAB PO SCH (19:45)
[2022-03-21] MEDS: Saccharomyces boulardii 250 MG CAP PO SCH (20:15)
[2022-03-21] MEDS: HumaLOG 300 UNITS/3 ML VIAL SC PRN ×2 (20:16→21:44)
[2022-03-22] MEDS: diphenhydrAMINE 50 MG/ML VIAL IVP PRN (00:13)
[2022-03-22] MEDS: tiZANidine HCl 4 MG TAB PO SCH ×4 (00:13→17:47)
[2022-03-22] MEDS: Dexamethasone 4 MG TAB PO SCH ×2 (00:13→05:20)
[2022-03-22] MEDS: Oxacillin 2 GM in Sodium Chloride 0.9% 100 ML IVPB SCH ×6 (00:13→21:42)
[2022-03-22] MEDS: Sodium Chloride 0.9% 1,000 ML IV SCH ×3 (03:35→17:59)
[2022-03-22 04:39] LABS: Mean Corpuscular HGB CONC 32.5 g/dL (32.0-36.0); Mean Corpuscular Hemoglobin 30.4 pg (27.0-31.0); Mean Corpuscular Volume 93.5 fl (78.0-98.0); Mean Platelet Volume 8.2 fL (7.4-10.4); Platelet Count 315 10x3/uL (130-400); RBC Distribution Width 12.8 % (11.5-14.5); Red Blood Cell (RBC) Count 3.29 mill/uL (4.70-6.10); White Blood Cell (WBC) Count 15.8 10x3/uL (4.8-10.8)
[2022-03-22 04:48] LABS: ALT (SGPT) 17 U/L (8-55); AST (SGOT) 17 U/L (5-34); Albumin 2.4 g/dL (3.5-5.0); Alkaline Phosphatase 60 U/L (40-110); Anion Gap 11 mmol/L (10-20); BUN (Urea Nitrogen) 10 mg/dL (8.9-20.6); Bilirubin, Total 0.5 mg/dL (0.2-1.2); Calc. Creatinine Clearance 238 mL/min (70-130); Carbon Dioxide 24 mmol/L (22-29); Chloride 102 mmol/L (98-107); Estimated GFR 115; Globulin 2.8 g/dL (2.4-3.5); Glucose 153 mg/dL (70-105); Potassium 4.2 mmol/L (3.5-5.1); Protein, Total 5.2 g/dL (6.0-8.3); Sodium 133 mmol/L (136-145)
[2022-03-22 05:34] LABS: Band 4 % (5-11); Lymphocytes 4 % (21-51); MDiff Complete? YES; Metamyelocyte 1 % (0-0); Monocytes 3 % (0-10); Neutrophil 88 % (42-75); Platelet Morphology Comment Appears Adequate; Polychromasia SLIGHT = 2-3 cells (100X) (0-2/hpf)
[2022-03-22] MEDS: Atorvastatin Calcium 20 MG TAB PO SCH (09:01)
[2022-03-22] MEDS: metFORMIN 500 MG TAB PO SCH ×2 (09:01→17:47)
[2022-03-22] MEDS: Enoxaparin Sodium 40 MG/0.4 ML SYRINGE SC SCH (09:02)
[2022-03-22] MEDS: Dexamethasone 1 MG TAB PO SCH ×2 (12:30→17:47)
[2022-03-22] MEDS: HumaLOG 300 UNITS/3 ML VIAL SC PRN (12:31)
[2022-03-22] MEDS: Saccharomyces boulardii 250 MG CAP PO SCH (21:42)
[2022-03-23] MEDS: tiZANidine HCl 4 MG TAB PO SCH ×4 (00:22→17:52)
[2022-03-23] MEDS: Dexamethasone 1 MG TAB PO SCH ×4 (00:22→17:52)
[2022-03-23] MEDS: Oxacillin 2 GM in Sodium Chloride 0.9% 100 ML IVPB SCH ×6 (00:23→20:40)
[2022-03-23] MEDS: diphenhydrAMINE 50 MG/ML VIAL IVP PRN (00:23)
[2022-03-23] MEDS: Sodium Chloride 0.9% 1,000 ML IV SCH ×2 (05:03→18:02)
[2022-03-23] MEDS: HumaLOG 300 UNITS/3 ML VIAL SC PRN ×2 (05:03→12:39)
[2022-03-23] MEDS: Atorvastatin Calcium 20 MG TAB PO SCH (08:45)
[2022-03-23] MEDS: metFORMIN 500 MG TAB PO SCH ×2 (08:45→17:52)
[2022-03-23] MEDS: Enoxaparin Sodium 40 MG/0.4 ML SYRINGE SC SCH (08:45)
[2022-03-23] MEDS: Saccharomyces boulardii 250 MG CAP PO SCH (20:40)
[2022-03-24] MEDS: Oxacillin 2 GM in Sodium Chloride 0.9% 100 ML IVPB SCH ×6 (00:23→20:09)
[2022-03-24] MEDS: tiZANidine HCl 4 MG TAB PO SCH ×4 (00:23→18:33)
[2022-03-24] MEDS: Dexamethasone 1 MG TAB PO SCH ×4 (00:23→18:34)
[2022-03-24] MEDS: Zolpidem Tartrate 5 MG TAB PO PRN (00:29)
[2022-03-24] MEDS: Sodium Chloride 0.9% 1,000 ML IV SCH ×2 (05:05→18:47)
[2022-03-24 06:43] LABS: #Basophils 0.3 thou/uL (0.0-0.2); #Eosinphils 0.5 thou/uL (0.0-0.7); #Lymphocytes 2.3 thou/uL (1.20-3.40); #Monocytes 1.3 thou/uL (0.11-0.59); %Eosinophils 4.4 % (0.0-10.0); %Lymphocytes 18.6 % (21.0-51.0); %Monocytes 10.7 % (0.0-10.0); %Neutrophils 64.2 % (42.0-75.0); Hemoglobin 11.6 g/dL (14.0-18.0); Mean Corpuscular HGB CONC 32.3 g/dL (32.0-36.0); Mean Corpuscular Hemoglobin 30.6 pg (27.0-31.0); Mean Corpuscular Volume 94.6 fl (78.0-98.0); Mean Platelet Volume 8.1 fL (7.4-10.4); Platelet Count 444 10x3/uL (130-400); RBC Distribution Width 13.1 % (11.5-14.5); Red Blood Cell (RBC) Count 3.79 mill/uL (4.70-6.10); White Blood Cell (WBC) Count 12.4 10x3/uL (4.8-10.8)
[2022-03-24 07:07] LABS: Anion Gap 11 mmol/L (10-20); BUN (Urea Nitrogen) 15 mg/dL (8.9-20.6); Calc. Creatinine Clearance 257 mL/min (70-130); Calcium 8.2 mg/dL (7.8-10.44); Carbon Dioxide 25 mmol/L (22-29); Chloride 103 mmol/L (98-107); Estimated GFR 116; Glucose 164 mg/dL (70-105); Potassium 3.7 mmol/L (3.5-5.1); Sodium 135 mmol/L (136-145)
[2022-03-24] MEDS ORDERED: HYDROcodone/Acetaminophen 7.5/325 mg Tablet PO PRN (09:04)
[2022-03-24] MEDS ORDERED: Morphine 4 MG/ML VIAL SLOW IVP PRN (09:04)
[2022-03-24] MEDS: metFORMIN 500 MG TAB PO SCH ×2 (09:06→18:34)
[2022-03-24] MEDS: Atorvastatin Calcium 20 MG TAB PO SCH (09:07)
[2022-03-24] MEDS: Enoxaparin Sodium 40 MG/0.4 ML SYRINGE SC SCH (09:07)
[2022-03-24] MEDS: HYDROcodone/Acetaminophen 7.5/325 mg Tablet PO PRN ×3 (11:44→20:11)
[2022-03-24] MEDS: Acetaminophen/Codeine 30-300mg Tablet PO PRN (18:45)
[2022-03-24] MEDS ORDERED: Lorazepam 1 MG TAB PO SCH (19:45)
[2022-03-24] MEDS: Saccharomyces boulardii 250 MG CAP PO SCH (20:08)
[2022-03-25] MEDS: Oxacillin 2 GM in Sodium Chloride 0.9% 100 ML IVPB SCH ×6 (00:06→21:59)
[2022-03-25] MEDS: Zolpidem Tartrate 5 MG TAB PO PRN ×2 (00:06→22:16)
[2022-03-25] MEDS: Dexamethasone 1 MG TAB PO SCH ×2 (00:06→05:56)
[2022-03-25] MEDS: tiZANidine HCl 4 MG TAB PO SCH ×4 (00:06→18:10)
[2022-03-25] MEDS: Sodium Chloride 0.9% 1,000 ML IV SCH ×3 (04:25→22:45)
[2022-03-25 06:56] LABS: Hemoglobin 12.1 g/dL (14.0-18.0); Mean Corpuscular HGB CONC 31.8 g/dL (32.0-36.0); Mean Corpuscular Hemoglobin 30.2 pg (27.0-31.0); Mean Corpuscular Volume 95.3 fl (78.0-98.0); Mean Platelet Volume 8.3 fL (7.4-10.4); Platelet Count 450 10x3/uL (130-400); RBC Distribution Width 13.2 % (11.5-14.5); Red Blood Cell (RBC) Count 3.98 mill/uL (4.70-6.10)
[2022-03-25 07:07] LABS: Anion Gap 11 mmol/L (10-20); BUN (Urea Nitrogen) 13 mg/dL (8.9-20.6); Calc. Creatinine Clearance 253 mL/min (70-130); Calcium 8.4 mg/dL (7.8-10.44); Carbon Dioxide 27 mmol/L (22-29); Chloride 101 mmol/L (98-107); Estimated GFR 116; Glucose 136 mg/dL (70-105); Sodium 135 mmol/L (136-145)
[2022-03-25] MEDS: Enoxaparin Sodium 40 MG/0.4 ML SYRINGE SC SCH (09:07)
[2022-03-25] MEDS: metFORMIN 500 MG TAB PO SCH ×2 (09:07→16:59)
[2022-03-25] MEDS: Acetaminophen/Codeine 30-300mg Tablet PO PRN ×2 (09:07→12:29)
[2022-03-25] MEDS: Atorvastatin Calcium 20 MG TAB PO SCH (09:07)
[2022-03-25] MEDS: HYDROcodone/Acetaminophen 7.5/325 mg Tablet PO PRN ×3 (09:52→22:16)
[2022-03-25 11:01] LABS: Band 2 % (5-11); Eosinophils 1 % (0-10); Lymphocytes 25 % (21-51); MDiff Complete? YES; Monocytes 13 % (0-10); Myelocyte 1 % (0-0); Neutrophil 58 % (42-75); Platelet Morphology Comment Appears Increased; RBC Morphology Normal
[2022-03-25 16:23] VITALS: BMI 37.9
[2022-03-25] MEDS: Saccharomyces boulardii 250 MG CAP PO SCH (21:59)
[2022-03-26] MEDS: tiZANidine HCl 4 MG TAB PO SCH ×3 (00:28→11:23)
[2022-03-26] MEDS: HYDROcodone/Acetaminophen 7.5/325 mg Tablet PO PRN ×2 (06:14→10:27)
[2022-03-26] MEDS: CEFAZOLIN 2 GM in Sodium Chloride 0.9% 100 ML IVPB SCH ×2 (06:15→13:16)
[2022-03-26 06:52] LABS: Hemoglobin 12.8 g/dL (14.0-18.0); Mean Corpuscular HGB CONC 34.1 g/dL (32.0-36.0); Mean Corpuscular Hemoglobin 32.2 pg (27.0-31.0); Mean Corpuscular Volume 94.4 fl (78.0-98.0); Mean Platelet Volume 7.3 fL (7.4-10.4); Platelet Count 484 10x3/uL (130-400); RBC Distribution Width 13.7 % (11.5-14.5); Red Blood Cell (RBC) Count 3.97 mill/uL (4.70-6.10); White Blood Cell (WBC) Count 18.3 10x3/uL (4.8-10.8)
[2022-03-26 07:07] LABS: Anion Gap 14 mmol/L (10-20); BUN (Urea Nitrogen) 12 mg/dL (8.9-20.6); Calc. Creatinine Clearance 235 mL/min (70-130); Calcium 8.4 mg/dL (7.8-10.44); Carbon Dioxide 24 mmol/L (22-29); Chloride 99 mmol/L (98-107); Estimated GFR 113; Glucose 130 mg/dL (70-105); Potassium 3.9 mmol/L (3.5-5.1); Sodium 133 mmol/L (136-145)
[2022-03-26] MEDS ORDERED: Fioricet 325/50/40 mg Tablet PO PRN (07:57)
[2022-03-26] MEDS: Sodium Chloride 0.9% 1,000 ML IV SCH (08:57)
[2022-03-26] MEDS: Enoxaparin Sodium 40 MG/0.4 ML SYRINGE SC SCH (08:57)
[2022-03-26] MEDS: Atorvastatin Calcium 20 MG TAB PO SCH (08:57)
[2022-03-26] MEDS: metFORMIN 500 MG TAB PO SCH (08:57)
[2022-03-26 11:21] LABS: Band 4 % (5-11); Eosinophils 1 % (0-10); Lymphocytes 23 % (21-51); MDiff Complete? YES; Metamyelocyte 2 % (0-0); Monocytes 5 % (0-10); Myelocyte 10 % (0-0); Neutrophil 55 % (42-75); Platelet Morphology Comment Appears Increased; Polychromasia SLIGHT = 2-3 cells (100X) (0-2/hpf)
[2022-03-26 11:51] VITALS: BP 134/80; TEMP 98.4
== END 2022-03-26 14:21 | disposition home or self-care (01) | DRG 856 ==
LOC: ERS 21:38 → ERHOLD 03-18 01:17 → 2NO 03-18 02:08 → SURG A 03-18 13:48 → 2NO 03-18 17:31 → SURG A 03-20 19:56 → CCU 03-21 10:51 → SURG B 03-23 14:59
PROVIDERS: ADMIT Student in an Organized Health Care Education/Training Program; ATTEND Internal Medicine
PROC: 0J970ZZ Drainage of Back Subcutaneous Tissue and Fascia, Open Approach (ICD-10-PCS; principal; 2022-03-18)
PROC: 00QT0ZZ Repair Spinal Meninges, Open Approach (ICD-10-PCS; 2022-03-21)
PROC: 0J970ZZ Drainage of Back Subcutaneous Tissue and Fascia, Open Approach (ICD-10-PCS; 2022-03-21)
PROC: 02HV33Z Insertion of Infusion Device into Superior Vena Cava, Percutaneous Approach (ICD-10-PCS; 2022-03-25)
PROC: B5181ZA Fluoroscopy of Superior Vena Cava using Low Osmolar Contrast, Guidance (ICD-10-PCS; 2022-03-25)
PROC: B548ZZA Ultrasonography of Superior Vena Cava, Guidance (ICD-10-PCS; 2022-03-25)
DX: T81.41XA Infection following a procedure, superficial incisional surgical site, initial encounter (principal); A41.01 Sepsis due to Methicillin susceptible Staphylococcus aureus; G00.3 Staphylococcal meningitis; R65.21 Severe sepsis with septic shock; L02.212 Cutaneous abscess of back [any part, except buttock and flank]; G96.09 Other spinal cerebrospinal fluid leak; T81.44XA Sepsis following a procedure, initial encounter; Z20.822 Contact with and (suspected) exposure to COVID-19; E66.9 Obesity, unspecified; F43.10 Post-traumatic stress disorder, unspecified; Y83.8 Other surgical procedures as the cause of abnormal reaction of the patient, or of later complication, without mention of misadventure at the time of the procedure; E11.9 Type 2 diabetes mellitus without complications; Z90.49 Acquired absence of other specified parts of digestive tract; Z90.81 Acquired absence of spleen; Z88.1 Allergy status to other antibiotic agents; Z79.84 Long term (current) use of oral hypoglycemic drugs; Z79.899 Other long term (current) drug therapy; Z68.38 Body mass index [BMI] 38.0-38.9, adult
CPT/HCPCS: 36415; 36416; 36569; 70450; 71045; 72131; 72158; 80048; 80053; 81001; 81003; 81015; 83605; 83735; 83880; 85025; 85652; 86141; 87040; 87070; 87077; 87149; 87186; 87205; 87804; 87811; 93005; 93970; 96374; 96375; 96376; A9579; C1751; C1776; J0692; J1100; J1170; J1200; J1644; J1650; J1815; J1885; J2020; J2250; J2270; J2370; J2405; J2543; J2700; J2704; J3010; J3370; J3490; J7050; J8540; Q0162